=== PATIENT | male | born 1990 | race Two or more races ===

== ENCOUNTER 2020-07-22 11:04 | Emergency (ER) | payer BC, MEDICAID ==
[~2020-07-22] VITALS: Ht 185.4 cm; Wt 102.1 kg
[2020-07-22 11:20] VITALS: BP 150/110
[2020-07-22 14:01] LABS: Basophils # (auto) 0.1 10 ^3/uL (0-0.2); Basophils % (auto) 1.2 % (0.0-2.0); Eosinophils # (auto) 0 10 ^3/uL (0-0.8); Eosinophils % (auto) 0.8 % (0.0-7.0); Hemoglobin 18.6 g/dL (13.5-17.5); Lymphocytes # (auto) 1.9 10 ^3/uL (0.4-5.4); Lymphocytes % (auto) 43.5 % (10.0-50.0); Mean Corpuscular Hemoglobin 34.7 pg (28.0-32.0); Mean Corpuscular Volume 99.1 fL (80.0-100.0); Monocytes # (auto) 0.4 10 ^3/uL (0-1.3); Monocytes % (auto) 9.3 % (0.0-12.0); Neutrophils # (auto) 1.9 10 ^3/uL (1.6-8.6); Neutrophils % (auto) 45.2 % (37.0-80.0); Nucleated Red Blood Cells % 0.4 %; Platelet Count (auto) 278 10^3/uL (140-450); Red Blood Cells 5.35 10^6/uL (4.5-5.90); White Blood Cell 4.3 10^3/uL (4.4-10.8)
[2020-07-22 14:19] LABS: Albumin 4.1 g/dL (3.4-5.0); Calcium 8.5 mg/dL (8.5-10.1); Potassium 3.8 mmol/L (3.5-5.1)
[2020-07-22 14:25] LABS: BUN/Creatinine Ratio 9.5; Bilirubin, Total 0.8 mg/dL (0.2-1.0); Total Protein 9.1 g/dL (6.4-8.2)
== END 2020-07-22 15:43 | disposition home or self-care (01) ==
LOC: ER 11:04
DX: U07.1 COVID-19 (principal); F41.9 Anxiety disorder, unspecified; F17.210 Nicotine dependence, cigarettes, uncomplicated
CPT/HCPCS: 36415; 71045; 80053; 85025

== ENCOUNTER 2025-05-08 21:05 | Emergency (ER) | payer MEDICAID ==
[~2025-05-08] VITALS: Ht 175.3 cm; Wt 75.0 kg
--- NOTE | 2025-05-08 21:23 | ED.PDOC ---
Psychiatric HPI Comments This patient is a 34-year-old male who arrives the ED today via EMS due to suicidal ideation concerns. Patient has a history of psychiatric issues as well as alcoholism. Patient states he consumed a large quantity of alcohol yesterday. Patient did not look toxic at time of evaluation, but states that he needs help and feels that he has no options left. Vital signs were stable. No signs of self-induced trauma. Time Seen by MD: 21:06 Reviewed Notes: Nurses Notes, Sanitarian Inspector Notes Information Source: Patient, Emergency Med Personnel Mode of Arrival: EMS Severity: Able to Care for Self Severity of Pain: None Severity of Mental Status: Severe Severity of Symptoms: Severe Timing: Days Duration: Since onset Prehospital treatment: None Presents with: Depression, Suicidal Ideation, Alcohol Intoxication History of: Depression, Anxiety Quality: Hopelessness Past Medical History PAST MEDICAL HISTORY: Anxiety Surgical History: Denies all surgeries Family History Family History: Reviewed,noncontributory to illness, No family hx of Cancer, No family hx of DM, No family hx of Heart warren, No family hx of HTN, No family hx ofKidney warren, No family hx of Liver warren, No family hx of Lung warren, No family hx of Stroke Social History Smoker: Cigarettes Alcohol: Heavy Drugs: Marijuana Lives In: Home Constitutional: denies: chills, diaphoresis, fatigue, fever, malaise, sweats, weakness, others EENTM: denies: blurred vision, double vision, ear bleeding, ear discharge, ear drainage, ear pain, ear ringing, eye pain, eye redness, hearing loss, mouth pain, mouth swelling, nasal discharge, nose bleeding, nose congestion, nose pain, photophobia, tearing, throat pain, throat swelling, voice changes, others Respiratory: denies: cough, hemoptysis, orthopnea, SOB at rest, shortness of breath, SOB with excertion, stridor, wheezing, others Cardiovascular: denies: chest pain, dizzy spells, diaphoresis, Dyspnea on exertion, edema, irregular heart beat, left arm pain, lightheadedness, palpitations, PND, syncope, others Gastrointestinal: denies: abdomen distended, abdominal pain, blood streaked bowels, constipated, diarrhea, dysphagia, difficulty swallowing, hematemesis, melena, nausea, poor appetite, poor fluid intake, rectal bleeding, rectal pain, vomiting, others Genitourinary: denies: burning, dysuria, flank pain, frequency, hematuria, incontinence, penile discharge, penile sore, pain, testicle pain, testicle swelling, urgency, others Neurological: denies: dizziness, fainting, headache, left sided numbness, left sided weakness, numbness, paresthesia, pre-existing deficit, right sided numbness, right sided weakness, seizure, speech problems, tingling, tremors, weakness, others Musculoskeletal: denies: back pain, gout, joint pain, joint swelling, muscle pain, muscle stiffness, neck pain, others Integumetry: denies: bruises, change in color, change in hair/nails, dryness, laceration, lesions, lumps, rash, wounds, others Allergic/Immunocompromised: denies: Difficulty Healing, Frequent Infections, Hives, Itching, others Hematologic/Lymphatic: denies: anemia, blood clots, easy bleeding, easy bruising, swollen glands, others Endocrine: denies: excessive hunger, excessive sweating, excessive thirst, excessive urination, flushing, intolerance to cold, intolerance to heat, unexplained weight gain, unexplained weight loss, others Psychiatric: reports: suicidal, others (Psychosis); denies: anxiety, bipolar disorder, depression, hopeless, panic disorder, schizophrenia, sleepless Physical Exam General Appearance: Mild Distress (Patient was in moderate distress due to his suicidal ideation concerns.), Normal HEENT: Normal ENT Inspection, Pharynx Normal, TMs Normal Neck: Full Range of Motion, Non-Tender, Normal, Normal Inspection Respiratory: Chest Non-Tender, Lungs Clear, No Accessory Muscle Use, No Respiratory Distress, Normal Breath Sounds Cardiovascular: No Edema, No JVD, No Murmur, No Gallop, Normal Peripheral Pulses, Regular Rate/Rhythm Breast Exam: Deferred Gastrointestinal: No Organomegaly, Non Tender, No Pulsatile Mass, Normal Bowel Sounds, Soft Genitalia: Deferred Pelvic: Deferred Rectal: Deferred Extremities: No calf tenderness, Normal inspection, Non-tender Neurologic: Alert Cerebellar Function: NOT DONE Reflexes: NOT DONE Skin: Dry, Normal Color, Warm Lymphatic: No Adenopathy Was a procedure done? Was a procedure done?: No Psych Differential Dx Psych. Differential Dx: Anxiety, Bipolar Disorder, Depression, Hopeless, Suicidal Intoxication Differential Dx: Alcohol Withdraw Syndrome X-Ray, Labs, Meds, VS Vital Signs Date Time Temp Pulse Resp B/P (MAP) Pulse Ox O2 Delivery O2 Flow Rate FiO2 05/08/25 21:05 98.5 94 14 15 98 98.5 Lab Test 05/08/25 21:46 Range/Units White Blood Count 6.1 4.4-10.8 10^3/uL Red Blood Count 3.76 L 4.5-5.90 10^6/uL Hemoglobin 10.4 L 13.5-17.5 g/dL Hematocrit 32.2 L 41.0-53.0 % Mean Corpuscular Volume 85.7 80.0-100.0 fL Mean Corpuscular Hemoglobin 27.7 L 28.0-32.0 pg Mean Corpuscular Hemoglobin Concent 32.4 32.0-36.0 g/dL Red Cell Distribution Width 23.8 H 11.8-14.3 % Platelet Count 152 140-450 10^3/uL Mean Platelet Volume 6.9 6.9-10.8 fL Neutrophils (%) (Auto) 51.0 37.0-80.0 % Lymphocytes (%) (Auto) 38.5 10.0-50.0 % Monocytes (%) (Auto) 7.3 0.0-12.0 % Eosinophils (%) (Auto) 2.3 0.0-7.0 % Basophils (%) (Auto) 0.9 0.0-2.0 % Neutrophils # (Auto) 3.1 1.6-8.6 10 ^3/uL Lymphocytes # (Auto) 2.4 0.4-5.4 10 ^3/uL Monocytes # (Auto) 0.4 0-1.3 10 ^3/uL Eosinophils # (Auto) 0.1 0-0.8 10 ^3/uL Basophils # (Auto) 0.1 0-0.2 10 ^3/uL Nucleated Red Blood Cells 0.0 % Sodium Level 142 136-145 mmol/L Potassium Level 3.5 3.5-5.1 mmol/L Chloride Level 104 98-107 mmol/L Carbon Dioxide Level 20 20-31 mmol/L Anion Gap 18 H 5-15 Blood Urea Nitrogen < 5 L 9-23 mg/dL Creatinine 0.77 0.700-1.30 mg/dL Glomerular Filtration Rate Calc 120 >90 mL/min BUN/Creatinine Ratio 6.5 L 10.0-20.0 Serum Glucose 90 74-106 mg/dL Calcium Level 8.8 8.7-10.4 mg/dL Plasma/Serum Blood Alcohol 127.8 H <10 mg/dL Current Medications Medications (Trade) Dose Ordered Sig/Lindsay Route Start Time Stop Time Status Last Admin Ondansetron HCl (Zofran Po) 4 mg ONCE ONCE PO 05/08/25 22:00 05/08/25 22:01 DC 05/08/25 22:48 Sodium Chloride 1,000 ml @ 1,000 mls/hr Q1H ONCE IV 05/09/25 01:30 05/09/25 02:29 05/09/25 01:30 X-Ray, Labs, Meds, VS Comment Laboratories were pending at time of this note. Patient will receive a psychiatric evaluation and probable placement tonight. Patient will remain in ED obs until psychiatric evaluation has concluded. Spoke with our psychiatrist Dr. Garcia. He advised me that he was able to consult the patient and believes the patient would benefit from an inpatient stay. Patient's alcohol detoxification will be managed while awaiting transfer. Time of 1ST Reevaluation: 21:22 Reevaluation 1ST: Unchanged Consultation: PCP, Psychiatry Patient Education/Counseling: Diagnosis, Treatment Family Education/Counseling: Diagnosis, Treatment Departure 1 Departure Time of Disposition: 21:23 Impression: Primary Impression: Suicidal ideation Additional Impression: Alcohol abuse Disposition: 02 SHORT TERM HOSPITAL Condition: Poor Discharged With: Self Critical Care Note Critical Care Time?: No Stability Stability form required: No Heart Score Heart Score: Heart Score Response (Comments) Value History N/A 0 EKG N/A 0 Age N/A 0 Risk Factors N/A 0 Troponin N/A 0 Total 0 RALPH LABOY PAC May 08, 2025 21:23
[2025-05-08 22:10] LABS: Hematocrit 32.2 % (41.0-53.0); Hemoglobin 10.4 g/dL (13.5-17.5); Mean Corpuscular Hemoglobin 27.7 pg (28.0-32.0); Mean Corpuscular Volume 85.7 fL (80.0-100.0); Nucleated Red Blood Cells % 0.0 %
[2025-05-08 22:16] LABS: Chloride 104 mmol/L (98-107); Sodium 142 mmol/L (136-145)
[2025-05-08 22:17] LABS: Anion Gap 18 (5-15); Calcium 8.8 mg/dL (8.7-10.4)
[2025-05-08 22:22] LABS: Glucose 90 mg/dL (74-106)
[2025-05-08 22:41] LABS: BUN/Creatinine Ratio 6.5 (10.0-20.0); Blood Urea Nitrogen < 5 mg/dL (9-23); Carbon Dioxide 20 mmol/L (20-31); Potassium 3.5 mmol/L (3.5-5.1)
[2025-05-08] MEDS: ONDANSETRON ODT 4 MG TAB PO ONE (22:48)
[2025-05-09] MEDS: SODIUM CHLORIDE 0.9% 1,000 ML IV ONE (01:30)
[2025-05-09] MEDS: ONDANSETRON HCL 4 MG/2 ML VIAL IV ONE (01:32)
--- NOTE | 2025-05-09 02:04 | DVHINCON2 ---
Date of Service if different f: May 09, 2025 Time of Service: 01:36 Consultation ([facility]) Consulting Physician: JOHN DONG MD Labs Laboratory Tests Test 05/08/25 21:46 White Blood Count 6.1 10^3/uL (4.4-10.8) Red Blood Count 3.76 10^6/uL (4.5-5.90) Hemoglobin 10.4 g/dL (13.5-17.5) Hematocrit 32.2 % (41.0-53.0) Mean Corpuscular Volume 85.7 fL (80.0-100.0) Mean Corpuscular Hemoglobin 27.7 pg (28.0-32.0) Mean Corpuscular Hemoglobin Concent 32.4 g/dL (32.0-36.0) Red Cell Distribution Width 23.8 % (11.8-14.3) Platelet Count 152 10^3/uL (140-450) Mean Platelet Volume 6.9 fL (6.9-10.8) Neutrophils (%) (Auto) 51.0 % (37.0-80.0) Lymphocytes (%) (Auto) 38.5 % (10.0-50.0) Monocytes (%) (Auto) 7.3 % (0.0-12.0) Eosinophils (%) (Auto) 2.3 % (0.0-7.0) Basophils (%) (Auto) 0.9 % (0.0-2.0) Neutrophils # (Auto) 3.1 10 ^3/uL (1.6-8.6) Lymphocytes # (Auto) 2.4 10 ^3/uL (0.4-5.4) Monocytes # (Auto) 0.4 10 ^3/uL (0-1.3) Eosinophils # (Auto) 0.1 10 ^3/uL (0-0.8) Basophils # (Auto) 0.1 10 ^3/uL (0-0.2) Nucleated Red Blood Cells 0.0 % Sodium Level 142 mmol/L (136-145) Potassium Level 3.5 mmol/L (3.5-5.1) Chloride Level 104 mmol/L (98-107) Carbon Dioxide Level 20 mmol/L (20-31) Anion Gap 18 (5-15) Blood Urea Nitrogen < 5 mg/dL (9-23) Creatinine 0.77 mg/dL (0.700-1.30) Glomerular Filtration Rate Calc 120 mL/min (>90) BUN/Creatinine Ratio 6.5 (10.0-20.0) Serum Glucose 90 mg/dL (74-106) Calcium Level 8.8 mg/dL (8.7-10.4) Plasma/Serum Blood Alcohol 127.8 mg/dL (<10) Appearance: Stated age Psychomotor activity: WNL Behavioral: Cooperative Eye contact: Appropriate Speech: WNL Affect: Mood Congruent Mood: Depressed, Dysphoric Thought processes: Linear/Goal-directed Thought content: Hallucinations (auditory) Suicidal ideations: Present Homicidal ideations: Absent Orientation: Person, Place, Time, Situation Memory intact: Recent Intellect: Average Abstractability: WNL Concentration: Adequate Attention: Adequate Judgement: WNL Insight: Good Vitals Vital Signs Date Time Temp Pulse Resp B/P (MAP) Pulse Ox O2 Delivery O2 Flow Rate FiO2 05/08/25 21:05 98.5 94 14 98 98.5 Treatment plan discussed: With staff Medication adjusted: Yes Labs ordered: No Psychotherapy provided: No Type: Voluntary History of Present Illness Reason for Consult : psychiatric evaluation PER ED PHYSICIAN: This patient is a 34-year-old male who arrives the ED today via EMS due to suicidal ideation concerns. Patient has a history of psychiatric issues as well as alcoholism. Patient states he consumed a large quantity of alcohol yesterday. Patient did not look toxic at time of evaluation, but states that he needs help and feels that he has no options left. Vital signs were stable. No signs of self-induced trauma. PSYCHIATRIST HPI: The patient was seen and evaluated at [facility] ED via telepsychiatry platform. 34 yr old male reported he has been drinking hard liquor since he was 17 and it is hard for him to stop. He stated he tried to commit suicide a couple nights ago by taking pills and drinking a whole bottle of vodka. He noted he fell asleep and slept through the night, but then woke up the next morning. He noted he has auditory hallucinations over the past two years where he hears his mom's voice which occurs when he is sober. He noted he has been feeling depressed and down. He feels hopeless and helpless. He has low energy, feels guilty about his drinking and has recurrent suicidal ideation. He noted he gets shakes, vomits, headache when he withdraws from alcohol use.He also had an alcohol withdrawal seizure in 07/17. He drinks about 750ml vodka daily. He noted his longest bout of sobriety is 3-4 days. He denied having homicidal ideation and visual hallucinations. Past Psychiatric History : Admitted to [facility] for 72 hrs on 04/26/25. Four past suicide attempts. Last time two nights ago by overdose on pills. Past Medical History: gall bladder removed in February 2025, past seizures Current Medications: Gabapentin qhs (unsure of dosage) NKDA Substance use: Alcohol use as indicated in HPI. Denied use of tobacco and other substance use. Social History: Lives with mother in [place]. Never , 6 children (4 in [facility], one in [place], oldest 18 yr old lives on his own). Associates degree. Unemployed since Jun 2024 (when he had seizure). Worked at professional [email or web address] Diagnosis: ALCOHOL USE DISORDER, SEVERE, with intoxication; Formulation: This 34 yr old male appears to suffer from depression and alcohol use disorder,severe. He is currently suicidal and is a moderate risk for self- harm. He warrants admission for stabilization, treatment and observation. He agrees to voluntary admission to behavioral health unit and may benefit from starting gabapentin. He also is a high risk for severe alcohol withdrawal syndrome so recommend CIWA protocol with benzo taper. Plan: 1. Transfer to Behavioral health unit when medically cleared and bed available. 2. Legal-Voluntary. He agrees to voluntary admission to [facility]. If patient is refusing voluntary hospitalization or no voluntary beds are available, please evaluate for 5150 hold. 3. Medication: recommend CIWA protocol with benzo taper for alcohol withdrawal symptoms. Recommend starting Gabapentin 200mg TID for craving and anxiety reduction 4. Contact psychiatry if further evaluation or follow up is desired. 5. case discussed with ED physician assistant finance manager, Will Chao. Assessment/Diagnosis/Plan Reviewed: Labs, Medications, Previous Orders JOHN DONG MD May 09, 2025 01:36
[2025-05-09] MEDS: LORazepam 2MG/ML-1ML VIAL IV ONE (02:41)
[2025-05-09 02:48] VITALS: PULSE 97; RESP 11; O2SAT 100
[2025-05-09 07:17] LABS: Urine Protein, UAD Negative (Negative)
[2025-05-09 07:29] LABS: Benzodiazephine Screen, Urine Pos (NEGATIVE)
[2025-05-09 07:35] LABS: Amphetamine Screen, Urine Neg (NEGATIVE); Barbiturate Scree,Urine Neg (NEGATIVE); Cannabinoid Screen, Urine Neg (NEGATIVE); Cocaine Screen, Urine Neg (NEGATIVE); Opiate Scree,Urine Neg (NEGATIVE); Phencyclidine Screen, Urine Neg (NEGATIVE)
[2025-05-09 08:00] VITALS: PULSE 82; RESP 19; O2SAT 98
[2025-05-09] MEDS: LORazepam 2MG/ML-1ML VIAL IV PRN (09:31)
[2025-05-09] MEDS: GABAPENTIN 100 MG CAP PO SCH (14:59)
[2025-05-09] MEDS: ONDANSETRON ODT 4 MG TAB PO PRN (17:53)
[2025-05-10 08:00] VITALS: PULSE 72; RESP 16; O2SAT 100
[2025-05-10 12:39] VITALS: BP 140/78; PULSE 77; RESP 14; TEMP 98.2; O2SAT 100
== END 2025-05-10 12:48 | disposition short-term general hospital (02) ==
LOC: ER 21:05 → EDBD 21:05 → ER 05-10 12:48
DX: R45.851 Suicidal ideations (principal); F10.229 Alcohol dependence with intoxication, unspecified; F17.210 Nicotine dependence, cigarettes, uncomplicated; F41.9 Anxiety disorder, unspecified; Z79.899 Other long term (current) drug therapy; Y90.9 Presence of alcohol in blood, level not specified
CPT/HCPCS: 36415; 80048; 80307; 80320; 81001; 85025; 96361; 96374; 96375; 96376; 99285; J2060; J2405; J7030; Q0162